=== PATIENT | female | born 1985 | race Caucasian/White ===

== ENCOUNTER 2019-09-01 07:12 | Outpatient (CLI) | payer OTHER, SELFPAY ==
[2019-09-01 07:39] LABS: Hematocrit 34.7 % (37.0-47.0); Hemoglobin 11.7 g/dL (12.0-15.0); Mean Corpuscular HGB Conc 33.7 g/dl (32-36); Mean Corpuscular Hemoglobin 30.5 pg (26-34); Mean Corpuscular Volume 90.6 fl (80-100); Platelet Count Result 208 k/mm3 (150-375); Red Blood Count 3.83 M/mm3 (4.2-5.4); Red Cell Distribution Width 12.7 % (11.5-14.5); White Blood Count 9.4 K/mm3 (4.5-10.0)
[2019-09-01 11:10] LABS: Rapid Plasma Reagin Non-Reactive (NonReactive)
== END 2019-09-01 07:13 | disposition home or self-care (01) ==
PROVIDERS: PCP Family Medicine; Visit Provider Obstetrics & Gynecology
DX: Z34.93 Encounter for supervision of normal pregnancy, unspecified, third trimester (principal); Z3A.00 Weeks of gestation of pregnancy not specified
CPT/HCPCS: 36415; 85027; 86592; 86850; 86900; 86901

== ENCOUNTER 2019-09-02 05:32 | Inpatient (IN) | payer OTHER, SELFPAY ==
--- NOTE | 2019-08-31 16:42 | PM.IMHP ---
H&P: HPI History of Present Illness Chief complaint: PREIN Narrative: Shadia Law is a 34 year old female 3 para 1011 last menstrual period is 09/03/2018, EDC is 09/09/2019 presents at 39 weeks gestation for repeat section. Her has been uncomplicated she has a 9 week ultrasound confirming dates Review of Systems Review of Systems: All systems reviewed & are unremarkable except as noted in HPI and below PMFSH Family History Family History Father Family history of malignant neoplasm of esophagus, Onset Age: 73 Social History Social History Smoking status: Never smoker Alcohol intake: current Substance use: never Gender identity (if verbalized by the patient): Female Spiritual care concerns: No Meds Home Medications and Allergies Home Medications Medication Instructions Recorded Confirmed Type PNV cmb#95-ferrous fumarate-FA 1 tablet PO DAILY 08/14/19 08/14/19 History [] Allergies Allergy/AdvReac Type Severity Reaction Status Date / Time No Known Allergies Allergy Unverified 11/28/18 12:24 Exam Const: General: no acute distress Eyes: General: appearance normal, both eyes and all related structures Neck: Neck: supple and no JVD Thyroid: thyroid normal Resp: Effort & Inspection: normal respiratory effort Auscultation: clear to auscultation bilaterally Cardio: Rate: regular rate Rhythm: regular rhythm GI: Inspection: normal to inspection (gravid soft uterus) : General: Yes bladder normal to palpation External Female Exam: normal external appearance Speculum Exam - Vagina: normal vaginal discharge and No vaginal bleeding Speculum Exam - Cervix: nontender Bimanual exam- vagina & uterus: bladder normal to palpation and No Cervical tenderness present OB/external & speculum: No vaginal bleeding Skin: General skin exam: no rashes or lesions noted Extrem: General: normal to inspection and no edema Psych: Mental Status: mental status grossly normal Affect: normal affect Assessment and Plan Additional Plan impression: Term with previous section Plan: Repeat low-transverse section
[2019-09-02] VITALS (45 sets, daily range): BP systolic 76–122; BP diastolic 44–76; PULSE 62–91; RESP 14–18; TEMP 36.4–37.2; O2SAT 94–100; BMI 23.8
--- NOTE | 2019-09-02 05:32 | LDADM ---
This patient, Shadia Law, was admitted to Labor/Delivery/Recovery 120 on 09/02/19 at 05:32. Plans for labor, pain management and were discussed with patient. Patient/family oriented to hospital policies and general routines including ID bracelet, bed and alarms, visiting hours, pain management, procedures, bathroom and other care routines, personal items, smoking policy, room service/diet and guest tray routines, security routines, and visiting hours. Patient/Family are encouraged to report perceived risks to care and to ask questions if they do not understand what they are told or what they should do. See OBIX for further documentation.
[2019-09-02] MEDS: LACTATED RINGERS 1,000 ML 125 ML IV CONT ×2 (06:00→06:34)
--- NOTE | 2019-09-02 06:29 | WPDANESEPPF ---
Anes - Initial Pre Proc Eval Procedure: Operation Date: 09/02/19 07:30 Proposed Procedures p Repeat Section - Manuel Stringer MD Date/Time: 09/02/19 06:29 Surgeon: Manuel Stringer MD Pre Op Diagnosis: repeat Patient Data Age: 34 Gender: F Height: Weight: Last Vital Signs Pulse 78 09/02/19 06:04 BP 103/71 09/02/19 06:04 Allergies Allergy/AdvReac Type Severity Reaction Status Date / Time No Known Allergies Allergy Unverified 11/28/18 12:24 Home Medications Medication Instructions Recorded Confirmed Type PNV cmb#95-ferrous fumarate-FA 1 tablet PO DAILY 08/14/19 08/14/19 History [] Patient hx anesthesia problems: none Family hx anesthesia problems: none PMFSH Family History Family History Father Family history of malignant neoplasm of esophagus, Onset Age: 73 Social History Social History Smoking status: Never smoker Alcohol intake: current Substance use: never Gender identity (if verbalized by the patient): Female Spiritual care concerns: No Anes - Eval Final PreProcedure Day of Procedure 09/02/19 06:29 Patient weight: normal Heart: regular rate and rhythm Lungs: clear to auscultation Airway: Mallampati scale class 1 Neurological: alert and oriented Last oral intake: >/= 8 hours ASA classification: II Emergent: no Anesthetic plan: proceed Anesthesia type and monitoring: regional spinal and standard monitoring Informed Consent: The patient's anesthetic plan and its attendant risks and benefits were discussed with the patient/family/POA. Questions were solicited and answers provided to the satisfaction of the patient/family/POA.
--- NOTE | 2019-09-02 06:31 | WPDHPUPDATE1 ---
History and Physical Update Update Date/Time: 09/02/19 06:31 History and Physical has been reviewed, including an updated exam of the patient. There are NO changes in the patient's condition. Risks, benefits, and alternatives have been discussed and questions answered. Patient agrees to proceed with procedure.
[2019-09-02] MEDS: ceFAZolin 2 GM/D5W 50 ML 2 GM/50 ML BAG IVPB (07:14)
--- NOTE | 2019-09-02 07:56 | P.OP_ITS ---
Procedure Note - Detailed Date of procedure: 09/02/19 Pre-op diagnosis: repeat Surgeon: Manuel Stringer MD Postop diagnosis: Term previous section Procedure: Repeat low-transverse section Anesthesia: Spinal Q BL: 350cc Findings: Female infant 7 lb 13 oz with Apgars 9 [id number] and 9 [id number] Complications: None Procedure: The patient was prepped and draped in the normal sterile fashion placed in the supine position. Under excellent spinal anesthetic the previous Pfannenstiel incision was opened and progressed through layers to the fascia. Fascia was opened in an upward out fashion bilaterally. Underlying muscles were sharply dissected the parietal peritoneum ovary back Reid clamps. This was entered by sharp dissection carried superiorly and then inferiorly to the dome of bladder. Bladder blade was placed. Bladder bladder flap was formed. A b ladder blade was returned. Low-transverse incision made in the breech delivered to the maternal right. The arms were swept forward and the head delivered in the flexed position. Cord was clamped x2 cut. Infant passed off the table given Apgars of 9 and minutes cord blood was drawn. Placenta delivered intact manually from the uterus. The uterus was next inspected and noted to have no debris or membranes remained. The uterus was closed with continuous running locking 0 Vicryl from lateral edge to lateral edge. This was followed by 2nd running locking 0 Vicryl from lateral edge to lateral edge. Ovaries and tubes appeared within normal limits. The uterus returned the abdomen. The hysterotomy incision inspected 1 last time noted hemostatic. The fascia was then closed with continuous running 0 Vicryl from lateral edge to midline bilaterally. Irrigation subcutaneous layer. The skin closed with 4 Monocryl and glue. All sponge, needle, instrument counts were correct. There were no immediate complications
[2019-09-02] MEDS: OXYTOCIN 30 UNITS/NS 500 ML 30 UNITS/500 ML BAG 125 UNITS IV CONT (09:23)
--- NOTE | 2019-09-02 10:55 | PC.NURSE ---
Consult with pt., mother states has had a difficulty latching due to keeping tongue up. Mother state just completed a feeding and will call out next feeding for assist as needed.
[2019-09-02] MEDS: NALBUPHINE HCL 10 MG/ML AMPUL 2 MG IV PUSH (11:15)
--- NOTE | 2019-09-02 11:59 | OBPPTRN ---
Patient transferred to post room #280 via stretcher . Support person present. Oriented to unit, room, information board, rooming in, admission packet and security measures. Patient verbalizes understanding.
[2019-09-02] MEDS: KCL 20 MEQ/D5/0.45% SOD CHL 1,000 ML 125 ML IV CONT (13:37)
--- NOTE | 2019-09-02 15:00 | PC.NURSE ---
Consulted with patient, mother reports this is 2nd child to breastfeed. Mother used a nipple shield with first child due to flat nipples. Nipples are now drawn out and is able to latch without shield. Infant does keep tongue up making a difficult latch. Infant is sleepy mother is attempting to wake to feed. Demonstrated stimulation techniques to wake for feeding. Assisted with infant to breast. Reviewed positioning/alignment in cross cradle, holding breast in U hold and guided asymmetrical latch on. Discussed rational for each. Several attempts before infant was able to latch correctly. Once on infant nursed eagerly, with steady draws and frequent swallowing noted. Reviewed signs of a correct latch, effective nursing and suck swallow ratio. was able to maintain latch without discomfort to mother. Suggested mother stimulate to keep infant awake and nursing effectively giving slight resistance with infant pulls back to assist maintaining deep latch. Reviewed feeding cues, frequencies, duration of feedings, feeding elimination flow sheet, signs of adequate intake and nipple care. Instructed mother to call out for RN assistance if she is unable to latch infant for feeding or she has discomfort with nursing. Instructed feeding should be initiated three hours from start of last feeding or if feeding cues are noted before. Mother voiced understanding of information shared.
[2019-09-02] MEDS: POLYSACCHARIDE IRON COMPLEX 150 MG CAPSULE PO (16:24)
[2019-09-02] MEDS: DOCUSATE SODIUM 100 MG CAPSULE PO (16:24)
[2019-09-02] MEDS: ACETAMINOPHEN 325 MG TABLET 650 MG PO (16:24)
[2019-09-02] MEDS: IBUPROFEN 600 MG TABLET PO (22:57)
[2019-09-03 05:18] VITALS: BP 101/66; PULSE 85; RESP 16; TEMP 36.6; O2SAT 96
[2019-09-03 05:20] LABS: Basophils Percent Auto 0.2 % (0.2-1.2); Eosinophils Absolute Auto 0.1 K/mm3 (0-0.3); Eosinophils Percent Auto 0.6 % (0-4.4); Hematocrit 34.3 % (37.0-47.0); Hemoglobin 11.6 g/dL (12.0-15.0); Immature Granulocyte Absolute 0.05 K/mm3 (0.00-0.031); Immature Granulocyte Percent A 0.4 % (0-0.5); Lymphocytes Absolute Auto 0.88 K/mm3 (0.9-3.2); Lymphocytes Percent Auto 6.9 % (18.3-44.2); Mean Corpuscular HGB Conc 33.8 g/dl (32-36); Mean Corpuscular Hemoglobin 30.9 pg (26-34); Mean Corpuscular Volume 91.2 fl (80-100); Mean Platelet Volume 10.1 fl (7.4-10.4); Monocytes Absolute Auto 0.5 K/mm3 (0.1-0.6); Monocytes Percent Auto 3.9 % (2.6-8.5); Neutrophils Absolute Auto 11.1 K/mm3 (1.3-6.7); Platelet Count Result 207 k/mm3 (150-375); Red Blood Count 3.76 M/mm3 (4.2-5.4); Red Cell Distribution Width 12.8 % (11.5-14.5); White Blood Count 12.7 K/mm3 (4.5-10.0)
--- NOTE | 2019-09-03 06:26 | P.PNOB_ITS ---
OB - PN: Subj Subjective Date/time seen: 09/03/19 06:26 Patient comments: no complaints and pain well controlled baby status: doing well and nursing well OB - PN: Obj Data Labs CBC & Chem 7: 09/03/19 04:40 Labs: Laboratory Results - last 24 hr 09/03/19 04:40 WBC 12.7 H RBC 3.76 L Hgb 11.6 L Hct 34.3 L MCV 91.2 MCH 30.9 MCHC 33.8 RDW 12.8 Plt Count 207 MPV 10.1 Immature Gran % (Auto) 0.4 Neut % (Auto) 88.0 H Lymph % (Auto) 6.9 L Ector % (Auto) 3.9 Eos % (Auto) 0.6 Baso % (Auto) 0.2 Lymph # (Auto) 0.88 L Ector # (Auto) 0.5 Eos # (Auto) 0.1 Baso # (Auto) 0.0 Abs Immat Gran (auto) 0.05 H Absolute Neuts (auto) 11.1 H Absolute Nucleated RBC 0.0 Nucleated RBC % 0.0 OB - PN A/P Plan day: 1 Plan: routine care Time Spent With Patient Time: Total time spent is greater than 50% in coordination of care (as doc umented) at patient's floor/unit and/or counseling patient: Time with patient: less than 15 minutes Review of Systems Review of Systems: All systems reviewed & are unremarkable except as noted in HPI and below Exam Const: General: no acute distress Eyes: General: appearance normal, both eyes and all related structures Neck: Neck: supple and no JVD Thyroid: thyroid normal Resp: Effort & Inspection: normal respiratory effort Auscultation: clear to auscultation bilaterally Cardio: Rate: regular rate Rhythm: regular rhythm GI: Inspection: normal to inspection and incision (cdi) : General: Yes bladder normal to palpation External Female Exam: normal external appearance Speculum Exam - Vagina: normal vaginal discharge and No vaginal bleeding Speculum Exam - Cervix: nontender Bimanual exam- vagina & uterus: bladder normal to palpation and No Cervical tenderness present OB/external & speculum: No vaginal bleeding Skin: General skin exam: no rashes or lesions noted Extrem: General: normal to inspection and no edema Psych: Mental Status: mental status grossly normal Affect: normal affect
[2019-09-03] MEDS: SIMETHICONE 80 MG TAB.CHEW PO (07:56)
[2019-09-03] MEDS: MULTIVIT/MIN/PREN/FOL AC/IRON TABLET 1 TAB PO (07:57)
[2019-09-03] MEDS: DOCUSATE SODIUM 100 MG CAPSULE PO ×2 (07:57→15:59)
[2019-09-03] MEDS: POLYSACCHARIDE IRON COMPLEX 150 MG CAPSULE PO ×2 (07:57→15:59)
[2019-09-03] MEDS: IBUPROFEN 600 MG TABLET PO ×2 (07:57→15:59)
[2019-09-03 08:00] VITALS: BP 103/66; PULSE 81; RESP 18; TEMP 36.2; O2SAT 100
--- NOTE | 2019-09-03 08:40 | PC.NURSE ---
Mother called out for assist with feeding. Consulted with patient, Assisted with infant to breast. Reviewed positioning/alignment in cross cradle, holding breast in U hold and guided asymmetrical latch on. Discussed rational for each. was able to latch correctly. Infant nursed eagerly, with steady draws and frequent swallowing noted. Reviewed signs of a correct latch, effective nursing and suck swallow ratio. Long pausing noted, advised to stimulate to keep infant awake and nursing effectively for increased intake and mother's comfort. was able to maintain latch without discomfort to mother. Nipple care reviewed. Instructed mother to call out for RN assistance if she is unable to latch infant for feeding or she has discomfort with nursing. Instructed feeding should be initiated three hours from start of last feeding or if feeding cues are noted before. Mother voiced understanding of information shared.
--- NOTE | 2019-09-03 09:10 | WPDANLDPN2 ---
Anes-Prog Note L&D Date/Time: 09/03/19 09:10 Comfortable throughout: section Neuraxial method: spinal Epidural/Spinal procedure site: clean & non-tender Neuro status: Neuro function grossly intact. Cardiovascular status: normal Respiratory status: normal Airway patency: baseline Mental status: baseline Post-Op hydration status: normal Vital Signs: Last Vital Signs Temp 36.6 C 09/03/19 05:18 Pulse 85 09/03/19 05:18 Resp 16 09/03/19 05:18 BP 101/66 09/03/19 05:18 Pulse Ox 96 09/03/19 05:18 Pain score (VAS): 0/10. Patient resting in bed at time of assessment, appears comfortable. Support person at bedside. I/O: Intake & Output 09/02/19 09/03/19 09/03/19 23:59 07:59 15:59 Intake Total 900 1500 Output Total 2800 2000 Balance -1900 -500 Post-procedural complaints: none Patient feedback: Patient satisfied with anesthetic care.
--- NOTE | 2019-09-03 09:11 | WPDANLDNPN2 ---
Anes-Prog Note L&D-Neuraxial Date/Time: 09/03/19 09:11 Neuraxial medications: intrathecal PF morphine Opiod-related complaints: none Patient feedback: Patient satisfied with post-operative pain management.
--- NOTE | 2019-09-03 11:55 | PC.NURSE ---
Mother called out for assist with feeding. Observed mother is able to independently latch with appropriate positioning/alignment. nursed eagerly, with steady draws and frequent swallowing noted. Reviewed signs of a correct latch, effective nursing and suck swallow ratio. Long pausing noted, advised to stimulate to keep infant awake and nursing effectively for increased intake and mother's comfort. was able to maintain latch without discomfort to mother. Nipple care reviewed. Instructed mother to call out for RN assistance if she is unable to latch infant for feeding or she has discomfort with nursing. Instructed feeding should be initiated three hours from start of last feeding or if feeding cues are noted before. Mother voiced understanding of information shared.
[2019-09-03 20:45] VITALS: BP 100/62; PULSE 82; RESP 18; TEMP 36.9; O2SAT 98
[2019-09-04] MEDS: IBUPROFEN 600 MG TABLET PO (04:53)
--- NOTE | 2019-09-04 06:59 | P.DS_ITS ---
DS: Diagnosis Admitting Diagnosis Admitting Diagnosis: term/prev section DS: Summary Time Spent with Patient Time attestation: Total time spent providing and/or coordinating discharge services: Exam Const: General: no acute distress Eyes: General: appearance normal, both eyes and all related structures Neck: Neck: supple and no JVD Thyroid: thyroid normal Resp: Effort & Inspection: normal respiratory effort Auscultation: clear to auscultation bilaterally Cardio: Rate: regular rate Rhythm: regular rhythm GI: Inspection: non-distended GI Palp: Yes Soft to palpation, No Tenderness to palpation present (GI) and No Guarding due to palpation present (GI) Auscultation: normal bowel sounds : General: Yes bladder normal to palpation External Female Exam: normal external appearance Speculum Exam - Vagina: normal vaginal discharge and No vaginal bleeding Speculum Exam - Cervix: nontender Bimanual exam- vagina & uterus: bladder normal to palpation and No Cervical tenderness present OB/external & speculum: No vaginal bleeding Skin: General skin exam: no rashes or lesions noted Extrem: General: normal to inspection and no edema Psych: Mental Status: mental status grossly normal Affect: normal affect Discharge Plan Discharge Attending physician on discharge: Manuel Stringer Discharging Clinician: Manuel Stringer Patient Disposition: Home, Self-Care Activity: may shower, no straining, may drive after 2 weeks and pelvic rest Diet: heart healthy Wound Care Instructions: follow printed instructions Patient Instructions: Antibiotic Form Stand Alone Forms: General Discharge Information Follow-up/Referrals: Manuel Stringer MD [Physician] - Discharge Medications: New hydrocodone-acetaminophen [[place]] 5-325 mg tablet 1 tablet PO Q4H PRN (Reason: pain) Qty: 30 RF: 0 Continued PNV cmb#95-ferrous fumarate-FA [] 28 mg iron- 800 mcg Tablet 1 tablet PO DAILY RF: 0 Date of admission: 09/02/19 05:32 Primary Care Provider: Austin Hassan Admitting Provider: Manuel Stringer Attending physician on admission: Manuel Stringer
--- NOTE | 2019-09-04 07:01 | PM.OBPNVD ---
OB - PN: Subj Subjective Date/time seen: 09/04/19 07:01 Patient comments: no complaints and pain well controlled baby status: doing well and nursing well OB - PN: Obj Data Labs CBC & Chem 7: 09/03/19 04:40 OB - PN A/P Plan day: 2 Plan: routine care and follow up 6 weeks (4 weeks) Time Spent With Patient Time: Total time spent is greater than 50% in coordination of care (as documented) at patient's floor/unit and/or counseling patient: Time with patient: less than 15 minutes Review of Systems Review of Systems: All systems reviewed & are unremarkable except as noted in HPI and below Exam Const: General: no acute distress Eyes: General: appearance normal, both eyes and all related structures Neck: Neck: supple and no JVD Thyroid: thyroid normal Resp: Effort & Inspection: normal respiratory effort Auscultation: clear to auscultation bilaterally Cardio: Rate: regular rate Rhythm: regular rhythm GI: Inspection: normal to inspection and incision (cdi) : General: Yes bladder normal to palpation External Female Exam: normal external appearance Speculum Exam - Vagina: normal vaginal discharge and No vaginal bleeding Speculum Exam - Cervix: nontender Bimanual exam- vagina & uterus: bladder normal to palpation and No Cervical tenderness present OB/external & speculum: No vaginal bleeding Skin: General skin exam: no rashes or lesions noted Extrem: General: normal to inspection and no edema Psych: Mental Status: mental status grossly normal Affect: normal affect
[2019-09-04 07:30] VITALS: BP 114/56; PULSE 89; RESP 16; TEMP 36.6; O2SAT 99
[2019-09-04] MEDS: MULTIVIT/MIN/PREN/FOL AC/IRON TABLET 1 TAB PO (09:08)
[2019-09-04] MEDS: DOCUSATE SODIUM 100 MG CAPSULE PO (09:08)
[2019-09-04] MEDS: ACETAMINOPHEN 325 MG TABLET 650 MG PO (09:24)
--- NOTE | 2019-09-04 10:40 | PC.NURSE ---
Consult with pt., mother reports she has had difficulties with getting infant to latch correctly during the night. has been sleepy and not dropping tongue to allow for a correct latch. Mother states she will attempt for 15-20 minutes before correct latch, infant will nurse for 5 minutes and release latch. Infant may latch again or refuse. Mother supplemented once during the night due to latch difficulties. Attempted to latch several times over the last hour. Infant is sleepy and will make weak attempts to latch and then fall asleep. Suggested mother allow infant to nipple 5-10 mls formula then attempt to breast. Mother is willing to use the formula to entice to suckle. Mother would also like to use the nipple shield to latch. Mother rpeorts she used a nipple shield for several weeks with first child for shallow latch and is comfortable with use and pumping after until milk supply is established. Infant was given 5mls and then transitioned to breast with shield in place. was more awake, mother was able to latch infant correctly. nursed eagerly with steady draws and frequent swallowing, followed with long pausing. Mother was able to stimulate awake and infant responds with bursts of nursing. Reviewed signs of a correct latch, effective nursing and suck swallow ratio. was able to maintain latch without discomfort to mother. Nipple care reviewed. Reviewed required feeding/elimination and signs of adequate intake. Discussed supplementation after feedings if needed and to increase as infant's needs increase. Mother is feeding as required and waking infant to feed if needed. is currently meeting outcomes for weight, output, jaundice and feeding frequencies. Mother states she feels confident to continue effective at home. Reviewed transition to breast milk, signs of adequate intake, and engorgement/relief. Instructed to call ICP if intake/output less than required. Reviewed regular medications mother is taking. Information provided per Clementine. Reviewed community resources on the [employer] website and in the Mom[employer]Baby guide. Information on outpatient services provided. Mother has no further questions at this time.
[2019-09-07 11:09] VITALS: BP 114/70; PULSE 76; RESP 18; TEMP 36.8
== END 2019-09-04 12:20 | disposition home or self-care (01) | DRG 788 ==
LOC: ANHLDR 06:32 → ANHOB2 10:41
PROVIDERS: Admitting Provider Obstetrics & Gynecology; PCP Family Medicine; Visit Provider Obstetrics & Gynecology
PROC: 10D00Z1 Extraction of Products of Conception, Low, Open Approach (ICD-10-PCS; CPT 59514; principal; 2019-09-02 07:30)
DX: O34.211 Maternal care for low transverse scar from previous cesarean delivery (principal); Z37.0 Single live birth; Z3A.39 39 weeks gestation of pregnancy; O32.1XX0 Maternal care for breech presentation, not applicable or unspecified
CPT/HCPCS: 36415; 85025; A9270; J0131; J0690; J2274; J2300; J2590; J3480; J7120